=== PATIENT | male | born 1980 | race Caucasian/White ===

== ENCOUNTER 2016-05-14 20:39 | Emergency (ER) | payer SELFPAY ==
[~2016-05-14] VITALS: Ht 175.3 cm; Wt 80.0 kg
[2016-05-14 21:42] VITALS: Ht 175.3 cm; Wt 80.0 kg
[2016-05-14 22:29] LABS: ADD SCAN DIFF NO
[2016-05-14 22:40] LABS: BASOPHIL # 0.1 10^3/ul (0.0-0.1); BASOPHILS % 0.5 % (0.0-2.0); EOSINOPHILS # 0.1 10^3/ul (0.0-0.5); EOSINOPHILS % 0.5 % (0.0-7.0); HEMATOCRIT 44.6 % (42.0-52.0); HEMOGLOBIN 15.8 g/dl (14.0-18.0); LYMPHOCYTES # 1.8 10^3/ul (0.8-2.9); LYMPHOCYTES % 17.9 % (15.0-51.0); MEAN CORPUSCULAR HEMOGLOBIN 30.9 pg (29.0-33.0); MEAN CORPUSCULAR HGB CONC 35.4 g/dl (32.0-37.0); MEAN CORPUSCULAR VOLUME 87.3 fl (82.0-101.0); MEAN PLATELET VOLUME 11.4 fl (7.4-10.4); MONOCYTE # 0.8 10^3/ul (0.3-0.9); MONOCYTES % 7.5 % (0.0-11.0); NEUTROPHIL # 7.4 10^3/ul (1.6-7.5); NEUTROPHILS % 73.2 % (39.0-77.0); PLATELET COUNT 250 10^3/UL (140-415); RED BLOOD COUNT 5.11 10^6/ul (4.70-6.10); RED CELL DISTRIBUTION WIDTH 12.4 % (11.5-14.5); WHITE BLOOD COUNT 10.1 10^3/ul (4.8-10.8)
[2016-05-14 22:51] LABS: CREATININE 0.86 mg/dl (0.61-1.24)
[2016-05-14 23:03] LABS: TROPONIN-I 0.018 ng/ml (0.00-0.12)
--- NOTE | 2016-05-14 23:12 | RADRPT ---
PROCEDURE: XR Chest. CLINICAL INDICATION: Chest pain TECHNIQUE: AP Portable chest. COMPARISON: 08/23/2014 FINDINGS: The cardiomediastinal silhouette is normal. The lungs are clear. The osseous structures are unrema rkable. IMPRESSION: No acute findings. RPTAT: HIKT .Yan Johns MD, MD Date Time Electronically viewed and signed by .Yan Johns MD, on 05/14/2016 23:12 .T/
[2016-05-14] MEDS ORDERED: XOP15INH INH (23:26)
--- NOTE | 2016-05-14 23:30 | ERD ---
ER Documentation Chief Complaint Date/Time DATE: 05/14/16 TIME: 23:27 Chief Complaint Chest pain. WPW on EKG HPI This is a 35-year-old male with a history of Wglpq-Mnsxbxnrp-Dzgsn syndrome complaining of palpitations. Patient states he was having palpitations and dizziness for 60 seconds and resolved. He had no chest pain or shortness of breath. 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 He says is very hard to breathe with the mask on and he feels like he is inhaling some fumes as well. He says he is asymptomatic now. 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 He was not admitted to the hospital then. He has no reticle printer at this time ROS All systems reviewed and are negative except as per history of present illness. 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)) Hx Psychiatric Problems: No Hx Miscellaneous Medical Probl: Yes (PRITCHETT PARKINSON WHITE DISEASE (WPW)) Hx Alcohol Use: No Hx Substance Use: No Hx Tobacco Use: No Smoking Status: Never smoker FmHx Family History: No coronary disease Physical Exam Vitals Vital Signs Date Time Temp Pulse Resp B/P Pulse Ox O2 Delivery O2 Flow Rate FiO2 05/14/16 22:05 97.8 91 28 131/83 99 Room Air 05/14/16 21:42 99.7 83 18 140/87 97 Physical Exam Const: Well-developed, well-nourished Head: Atraumatic, normocephalic Eyes: Normal Conjunctiva, PERRLA, EOMI, normal sclera, no nystagmus ENT: Normal External Ears, Nose and Mouth, moist mucus membranes. Neck: Full range of motion. No meningismus, no lymphadenopathy. Resp: Clear to auscultation bilaterally, no wheezing, rhonchi, rales Cardio: Regular rate and rhythm, no murmurs, S1 S2 present Abd: Soft, non tender x 4, non distended. Normal bowel sounds, no guarding or rebound, no pulsitile abdominal masses or bruits Skin: No petechiae or rashes, no ecchymosis , no maculopapular rash Back: No midline or flank tenderness Ext: No cyanosis, or edema, FROM x 4, normal inspection, neurovascularly intact x 4 Neur: Awake and alert, STR 5/5 x 4, sensation intact x 4, no focal findings, cerebellum intact Psych: Normal Mood and Affect Result Diagram: 05/14/16220905/14/162209 Results 24 hrs Laboratory Tests Test 05/14/16 22:10 Anion Gap 17 Basophils # 0.110^3/ul Basophils % 0.5% Blood Urea Nitrogen 17mg/dl Calcium Level 9.0mg/dl Carbon Dioxide Level 28mmol/L Chloride Level 101mmol/L Creatinine 0.86mg/dl Eosinophils # 0.110^3/ul Eosinophils % 0.5% Glucose Level 105mg/dl Hematocrit 44.6% Hemoglobin 15.8g/dl Lymphocytes # 1.810^3/ul Lymphocytes % 17.9% Mean Corpuscular Hemoglobin 30.9pg Mean Corpuscular Hemoglobin Concent 35.4g/dl Mean Corpuscular Volume 87.3fl Mean Platelet Volume 11.4fl Monocytes # 0.810^3/ul Monocytes % 7.5% Neutrophils # 7.410^3/ul Neutrophils % 73.2% Nucleated Red Blood Cells # 0.010^3/ul Nucleated Red Blood Cells % 0.0/100WBC Platelet Count 11770^3/UL Potassium Level 4.0mmol/L Red Blood Count 5.1110^6/ul Red Cell Distribution Width 12.4% Sodium Level 142mmol/L Troponin I 0.018ng/ml White Blood Count 10.110^3/ul Procedures/MDM PROCEDURE: XR Chest. CLINICAL INDICATION: Chest pain TECHNIQUE: AP Portable chest. COMPARISON: 08/23/2014 FINDINGS: The cardiomediastinal silhouette is normal. The lungs are clear. The osseous structures are unremarkable. IMPRESSION: No acute findings. RPTAT: HIKT .Yan Johns MD, Date Time Electronically viewed and signed by .Yan Johns MD, on 05/14/2016 23:12 .T/ CC: JOSE C SIERRA DO EKG: Rate/Rhythm: Normal Sinus Rhythm,NL intervals, WPW QRS, ST, QT: NORMAL MA, QRS, QT] Impression: Qmeqg-Ijirtbvym-Fmiwm Patient's labs are unremarkable. Patient likely had WPW tachycardia episode. Patient has been episode free for a year. Do not feel he needs therapy at this time. He needs to follow-up with cardiology per my recommendation. Return if the symptoms return last long Departure Diagnosis: Primary Impression: Palpitations Additional Impression: WPW (Qrgve-Arpumgkjr-Wszuc syndrome) Condition: Stable Patient Instructions: Palpitations Referrals: ANNABELLE LANG APOSTOLOS A. DO May 14, 2016 23:30
[2016-05-15 00:01] VITALS: BP 119/73; PULSE 76; RESP 28; TEMP 98.6
== END 2016-05-15 00:07 | disposition home or self-care (01) ==
LOC: E/R 20:39
DX: R00.2 Palpitations (principal); I45.6 Pre-excitation syndrome; R40.2142 Coma scale, eyes open, spontaneous, at arrival to emergency department; R40.2252 Coma scale, best verbal response, oriented, at arrival to emergency department; R40.2362 Coma scale, best motor response, obeys commands, at arrival to emergency department
CPT/HCPCS: 36415; 71010; 80048; 84484; 85025; 93005